=== PATIENT | female | born 1970 | race Caucasian/White ===

== ENCOUNTER → 2019-06-19 | Outpatient (CLI) | payer BC ==
--- NOTE | 2019-06-21 07:44 | BMR ---
EXAMINATION TYPE: MR breast BILAT wo/w con DATE OF EXAM: 06/19/2019 COMPARISON: None HISTORY: Nipple discharge, palpable left breast abnormality. TECHNIQUE: A series of fat and water weighted images in the long and short axis views of both breasts are obtained in conjunction with dynamic contrast MRI with subtraction technique. The patient was i njected with 7.5 mL intravenous Gadavist gadolinium contrast. Three-dimensional and additional post processing imaging is created on independent workstation and reviewed during official interpretation of this study. The patient experienced injection site pain with contrast injection in the examinatio n dated the repeated. FINDINGS: The breasts are composed of heterogenous fibroglandular tissue with minimal symmetric backg round parenchymal enhancement. The 3:00 position in the left breast there is a T2 hyperintense nonenl arged enhancing intramammary lymph node. There is a macroscopic fat-containing hilar prominent lobule , benign lipoma, or benign hamartoma at the 11:00 position in the left breast located 4 cm from the n ipple. This measures 1.5 x 2.2 cm and is T2 as well as T1 hypointense without enhancement. Nonenlarge d intramammary lymph node is also seen at the 10:00 position on the right. There are bilateral retrop ectoral breast implants present. No suspicious axillary or internal mammary adenopathy. No suspicious intramammary adenopathy. MR sequences for breast implant rupture were not performed however no evidence of extracapsular ruptu re is seen. Evaluation for intracapsular rupture is nondiagnostic. IMPRESSION: 1. BI-RADS 0-incomplete. For complete workup of bloody or clear nipple discharge retroareolar ultraso und and diagnostic mammogram are necessary as well as targeted ultrasound for the left breast palpabl e abnormality at an unspecified location. For nipple discharge of any other color clinical management would be recommended with consideration for MRI of brain pituitary mass protocol if bilateral and pe rsistent. 2. No abnormal enhancement. No MR evidence of malignancy. No pathologic adenopathy.
== END | disposition home or self-care (01) ==
LOC: RADMRIMAIN 07:45
PROVIDERS: ATTEND Family Medicine
DX: N64.52 Nipple discharge (principal)
CPT/HCPCS: 77049; C8937; A9585

== ENCOUNTER → 2019-08-03 | Outpatient (CLI) | payer BC ==
--- NOTE | 2019-08-27 07:27 | MM ---
Reason for exam: clinical finding. Last mammogram was performed 2 years and 8 months ago. History: Silicone gel implants in both breasts, 2013. Benign excisional biopsy of the left breast, 2011. Saline implants in both breasts, 2005. Taking estrogen for 2 years beginning at age 46. Taking progesterone for 2 years beginning at age 46. Taking other hormone for 2 years beginning at age 46. Indicated problem(s): lump or thickening in the right breast. Physical Findings: Nurse did not find any significant physical abnormalities on exam. MG 3D Diag Mammo Imp W/Cad DELMER Bilateral CC, MLO, and ID view(s) were taken. Prior study comparison: December 11, 2016, mammogram, performed at [place]. The breast tissue is heterogeneously dense. This may lower the sensitivity of mammography. Benign appearing bilateral calcifications. Bilateral breast prothesis. No significant new findings when compared with previous films. These results were verbally communicated with the patient on 08/23/19. ASSESSMENT: Benign, BI-RAD 2 RECOMMENDATION: Routine screening mammogram of both breasts in 1 year.
== END | disposition home or self-care (01) ==
LOC: RADMAMWWP 10:59
PROVIDERS: ATTEND Family Medicine
DX: N63.10 Unspecified lump in the right breast, unspecified quadrant (principal); N63.20 Unspecified lump in the left breast, unspecified quadrant; Z98.82 Breast implant status
CPT/HCPCS: 77062; 77066